=== PATIENT | female | born 1990 | race Caucasian/White ===

== ENCOUNTER 2020-12-23 16:04 | Outpatient (CLI) | payer OTHER, SELFPAY ==
--- NOTE | 2020-12-23 16:26 | XR_ITS ---
WS: [id number] ABDOMEN 1 VIEW(S) HISTORY: FLANK PAIN,RIGHT COMPARISON: None available. Normal bowel gas pattern. Ovoid densities project over the LEFT abdomen at the L4-5 disc level and also over the RIGHT sacrum. These may be medicinal tablets. No calcifications. No bone abnormality. XR/XR KUB [id number] IMPRESSION: Unremarkable abdomen radiograph. If there is continued concern for ureteral chris cification consider noncontrast CT abdomen and pelvis follow-up.
== END 2020-12-23 16:05 | disposition home or self-care (01) ==
PROVIDERS: PCP Family Medicine; Visit Provider Clinical Nurse Specialist Adult Health
DX: R10.9 Unspecified abdominal pain (principal)
CPT/HCPCS: 74018

== ENCOUNTER → 2021-06-18 13:25 | Outpatient (BNVA) | payer BC, SELFPAY | PROVIDERS: PCP Family Medicine; Visit Provider Clinical Nurse Specialist Adult Health | DX: N39.0 Urinary tract infection, site not specified (principal) | CPT/HCPCS: 81000; 87086 ==

== ENCOUNTER → 2021-08-17 12:58 | Outpatient (BNVA) | payer BC, SELFPAY | PROVIDERS: PCP Family Medicine; Visit Provider Family Medicine | DX: N39.0 Urinary tract infection, site not specified (principal) | CPT/HCPCS: 81000; 87086 ==

== ENCOUNTER → 2022-01-13 15:51 | Outpatient (BNVA) | payer BC, SELFPAY | PROVIDERS: PCP Family Medicine; Visit Provider Nurse Practitioner Family | DX: N39.0 Urinary tract infection, site not specified (principal); R10.30 Lower abdominal pain, unspecified; Z12.4 Encounter for screening for malignant neoplasm of cervix; N34.2 Other urethritis | CPT/HCPCS: 81000; 87086 ==

== ENCOUNTER → 2022-01-14 13:10 | Outpatient (BNVA) | payer BC, SELFPAY | PROVIDERS: PCP Family Medicine; Visit Provider Nurse Practitioner Family | DX: N39.0 Urinary tract infection, site not specified (principal); R10.30 Lower abdominal pain, unspecified; Z12.4 Encounter for screening for malignant neoplasm of cervix; N34.2 Other urethritis | CPT/HCPCS: 87491; 87591; 87624; 87661 ==

== ENCOUNTER 2022-06-03 14:24 | Outpatient (CLI) | payer BC, SELFPAY ==
--- NOTE | 2022-06-03 14:43 | MR_ITS ---
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 Technique: Multiplanar, multisequence noncontrast imaging of the cervical spine. Mild straightening of the normal cervical lordosis is probably positional. No fractures or marrow minna ma. Signal within the cervical cord is normal. Visualized posterior fossa is unremarkable. Craniocervical junction, C1 and C2 relationship, odontoid process and soft tissues are normal. C2-C3: Normal. C3-C4: Very mild annular disc bulge with a central disc protrusion. Very small foraminal osteophytes. Mild foraminal narrowing. C4-C5: Normal. C5-C6: Mild annular disc bulge with a central disc protrusion. No stenosis. C6-C7: Mild annular disc bulge with a very shallow RIGHT paracentral disc protrusion. Small bilateral foraminal osteophytes. No cord contact or nerve root contact. C7-T1: Normal. Paraspinal soft tissue are normal. MR/MR cervical spin wo con* [id number] IMPRESSION: 1. No significant central or foraminal stenosis. 2. Shallow RIGHT paracentral disc protrusion at C6-7 and small foraminal osteo phytes. No stenosis. 3. Mild foraminal narrowing at C3-4 due to osteophytes. 4. Small central disc protrusion at C5-6 with no stenosis.
== END 2022-06-03 14:25 | disposition home or self-care (01) ==
LOC: RAD 14:27
PROVIDERS: PCP Family Medicine; Visit Provider Internal Medicine
DX: M47.812 Spondylosis without myelopathy or radiculopathy, cervical region (principal); M79.2 Neuralgia and neuritis, unspecified
CPT/HCPCS: 72141

== ENCOUNTER → 2022-10-05 11:24 | Outpatient (BNVA) | payer BC, SELFPAY | PROVIDERS: PCP Family Medicine; Visit Provider Clinical Nurse Specialist Adult Health | DX: R53.83 Other fatigue (principal); R51.9 Headache, unspecified; R10.30 Lower abdominal pain, unspecified; Z12.4 Encounter for screening for malignant neoplasm of cervix | CPT/HCPCS: 80053; 82040; 82672; 83540; 84144; 84270; 84403; 84443; 85025; 85651; 86140 ==

== ENCOUNTER → 2023-07-12 11:55 | Outpatient (BNVA) | payer OTHER, SELFPAY | PROVIDERS: PCP Family Medicine; Visit Provider Clinical Nurse Specialist Adult Health | DX: R10.30 Lower abdominal pain, unspecified (principal); N39.0 Urinary tract infection, site not specified | CPT/HCPCS: 81000; 87086 ==

== ENCOUNTER → 2024-05-07 14:44 | Outpatient (BNVA) | payer OTHER, SELFPAY | PROVIDERS: PCP Family Medicine; Visit Provider Family Medicine | DX: R35.0 Frequency of micturition (principal) | CPT/HCPCS: 83036 ==